=== PATIENT | female | born 1965 | race Caucasian/White ===

== ENCOUNTER 2019-05-23 16:24 | Emergency (ER) | payer MEDICAID ==
[~2019-05-23] VITALS: Ht 165.1 cm; Wt 80.0 kg
[~2019-05-23 16:24] MED LIST: FERR-63 PO; FLUO40CA8 PO; GABA800T PO; HYDR-3927 PO; VENL150C2 PO; VENL75CA55 PO; ZIPR40CA2 PO; ZIPR80CA2 PO
[2019-05-23 17:45] LABS: BASOPHILS % 0.4 % (0.0-2.0); HEMATOCRIT. 45.4 % (36.0-48.0); HEMOGLOBIN. 15.2 g/dL (12.0-16.0); LYMPHOCYTES % 16.2 % (20.0-50.0); MEAN CORPUSCULAR VOLUME 89.5 fL (81.0-99.0); MEAN PLATELET VOLUME 8.3 fl (7.4-10.4); MONOCYTES % 5.1 % (2.0-8.0); NEUTROPHILS % 77.3 % (40.0-76.0); PLATELET 287 x1000/uL (130-400); RED BLOOD CELL COUNT 5.08 mill/uL (4.2-5.4); RED CELL DISTRIBUTION WIDTH 15.4 % (11.6-14.6)
[2019-05-23 17:56] LABS: CHLORIDE 104 mEq/L (98-107)
[2019-05-23] MEDS ORDERED: ACETAMINOPHEN 325MG TABLET ONE (18:38)
[2019-05-23] MEDS ORDERED: KETOROLAC 30MG/ML VIAL ONE (18:39)
[2019-05-23 22:00] VITALS: BP 135/89
== END 2019-05-23 23:43 | disposition home or self-care (01) ==
LOC: ER 16:44
DX: M25.511 Pain in right shoulder (principal); J45.909 Unspecified asthma, uncomplicated; I10 Essential (primary) hypertension; Z95.5 Presence of coronary angioplasty implant and graft; Z79.899 Other long term (current) drug therapy
CPT/HCPCS: 36415; 71045; 73030; 80053; 84484; 85025; 93005; 93971; 99284; J1885; Z7610